=== PATIENT | female | born 1965 | race American Indian/Alaskan Native ===

== ENCOUNTER 2018-08-02 15:52 | Emergency (ER) | payer OTHER ==
--- NOTE | 2018-08-02 18:13 | Emergency Department Report ---
- General Chief Complaint: Upper Respiratory Infection Stated Complaint: POSS SINUS INFECTION Time Seen by Provider: 08/02/18 18:01 Source: patient Mode of arrival: Ambulatory Limitations: No Limitations - History of Present Illness Initial Comments: Pt is a 53 yo female who presents with sinus pressure for three weeks. She has associated congestion, rhinorrhea, MARIN. She denies any fever, ear pain, ear drainage, or sore throat. The patient has a hx of seasonal allergies and has been taking zyrtec. She says she has also tried taking sudafed. - Related Data Previous Rx's Medication Instructions Recorded Last Taken Type Amoxicillin/K Clav Tab [Augmentin 1 tab PO BID 7 Days #14 tab 08/02/18 Unknown Rx 875 mg] Fluticasone [Flonase] 1 spray NS QDAY #1 bottle 08/02/18 Unknown Rx Loratadine [Claritin] 10 mg PO DAILY #30 tablet 08/02/18 Unknown Rx Allergies Allergy/AdvReac Type Severity Reaction Status Date / Time No Known Allergies Allergy Unverified 08/02/18 15:58 ED Review of Systems ROS: Stated complaint: POSS SINUS INFECTION Other details as noted in HPI Comment: All other systems reviewed and negative ED Past Medical Hx - Past Medical History Previous Medical History?: No - Surgical History Past Surgical History?: Yes Additional Surgical History: feet - Social History Smoking Status: Never Smoker Substance Use Type: None - Medications Home Medications: Home Medications Medication Instructions Recorded Confirmed Last Taken Type Amoxicillin/K Clav Tab [Augmentin 1 tab PO BID 7 Days #14 tab 08/02/18 Unknown Rx 875 mg] Fluticasone [Flonase] 1 spray NS QDAY #1 bottle 08/02/18 Unknown Rx Loratadine [Claritin] 10 mg PO DAILY #30 tablet 08/02/18 Unknown Rx ED Physical Exam - General Limitations: No Limitations General appearance: alert, in no apparent distress - Head Head exam: Present: atraumatic, normocephalic - Eye Eye exam: Present: other (dark circles present under the bilateral eyes) - ENT ENT exam: Present: normal orophraynx, other (pale, boggy nasal turbinates) - Respiratory Respiratory exam: Present: normal lung sounds bilaterally. Absent: respiratory distress, wheezes, rales, rhonchi, stridor, chest wall tenderness, accessory muscle use, decreased breath sounds, prolonged expiratory - Cardiovascular Cardiovascular Exam: Present: regular rate, normal rhythm, normal heart sounds. Absent: systolic murmur, rubs, gallop - Neurological Exam Neurological exam: Present: alert, oriented X3 - Psychiatric Psychiatric exam: Present: normal affect, normal mood ED Course Vital Signs 08/02/18 16:26 Temperature 97.9 F Pulse Rate 88 Respiratory 16 Rate Blood Pressure 121/87 O2 Sat by Pulse 100 Oximetry ED Medical Decision Making - Medical Decision Making Pt presents with sinus pressure, congestion, rhinorrhea, and MARIN for three weeks. Has tried taking zyrtec and sudafed without much relief. Appears to have seasonal allergies and sinusitis. Will prescribe flonase, augmentin, and claritin. Advised pt to follow up with PCP in the next 2-3 days. - Differential Diagnosis allergic rhinitis, sinusitis, seasonal allergies, URI, Viral syndrome Critical care attestation.: If time is entered above; I have spent that time in minutes in the direct care of this critically ill patient, excluding procedure time. ED Disposition Clinical Impression: Seasonal allergies Sinusitis Qualifiers: Sinusitis location: unspecified location Chronicity: acute Recurrence: non- recurrent Qualified Code(s): J01.90 - Acute sinusitis, unspecified Disposition: - TO HOME OR SELFCARE Is pt being admited?: No Does the pt Need Aspirin: No Condition: Stable Instructions: Sinusitis (ED), Allergies (ED) Additional Instructions: Follow up with primary care doctor in the next 2-3 days. Take all medication as prescribed. Prescriptions: Amoxicillin/K Clav Tab [Augmentin 875 mg] 1 tab PO BID 7 Days #14 tab Loratadine [Claritin] 10 mg PO DAILY #30 tablet Fluticasone [Flonase] 1 spray NS QDAY #1 bottle Time of Disposition: 18:10 Print Language: SWEDISH
== END 2018-08-02 18:18 | disposition home or self-care (01) ==
LOC: ED 15:52
CPT/HCPCS: 99282